=== PATIENT | female | born 1980 | race Hispanic/Latino ===

== ENCOUNTER 2025-02-24 17:47 | Emergency (ER) | payer OTHER ==
--- OUTSIDE RECORDS SUMMARY | 2025-02-24 17:55 | XMS REPORT | Continuity of Care Document ---
Author Name Unknown Address [address] [facility] [address] [place] [address] [facility] [place] Address [address] [facility] [place] [address] Care Team Providers Care Supervisor Research [employer] Name Role Phone Tobi Hopkins MD Primary Care Physician JOS REZA Attending Clinician Unavailable LAB90 Attending Clinician Unavailable LOI GOMEZ Attending Clinician Unava lien HASSAN_Abram Attending Clinician Unavailable Tobi Hopkins MD Attending Clinician + [phone] TOBI HOPKINS Attending Clinician Unajackson olivera Doctor Unassigned, [place] Attending Clinician U oral López MA, Sarah Scott Attending Clinician Unavaila Shivani Crump Attending Clinician [phone] Moo GRISSOM, Caryn Kenney Attending Clinician Unavailab RUTHIE Salcedo Attending Clinician Unavailable Ruthie Choudhury Attending Clinician [phone] RADHA DASH Attending Clinician Unavailable Radha Singleton Attending Clinician [phone] Lab, Ang - Db Attending Clinician Unavailable ALEXANDRU VANN Attending Clinician Unavail able Provider, [facility] Attending Clinician Un available EMIR VALVERDE Attending Clinician Unavailable Alexandru Vann DO Attending Clinician [phone] Lab, Adc Fam Pob I Attending Clinician Unavailab le 1, Adc Lab Attending Clinician Unavailable Saqib Mares MD Attending Clinician SAQIB MARES Attending Clinician Unavailable Kenneth Bai Attending Clinician SONYA_Abram Admitting Clinician Unavailable Payers Payer Name Policy Type Policy Number Effective Date Expirati on Date Source [employer] 2 [id number] 2024 00:00:00 BCBS 2 [id number] 2023 00:00:00 [facility] [id number] [facility] 2 [id number] 2023 00:00:00 [employer] [place] [id number] 2016 00:00:00 2016 00:00:00 Problems Condition Name Condition Details Condition Category Status Onset Date Resolution Date Last Treatment Date Treating Clinician Comments Source Migraine with aura and without status migrainosu s, not intractabl e Migraine with aura and without status migrainosu s, not intractabl e Disease Active 2023-11 00:00: 00 Lisa Seybold - Externa l BMI 33.0-33.9, adult BMI 33.0-33.9, adult Disease Active 2023-11 00:00: 00 Lisa Seybold - Externa l DM type 2 with diabetic mixed hyperlipid emia (multi HCC) DM type 2 with diabetic mixed hyperlipid emia (multi HCC) Disease Active 01-25 00:00: 00 Lisa Seybold - Externa l Anemia, unspecifie d type Anemia, unspecifie d type Disease Active 06-29 00:00: 00 [facility] Prediabete s Prediabete s Disease Active 06-29 00:00: 00 [facility] Other type of migraine without status migrainosu s Other type of migraine without status migrainosu s Disease Active 06-27 00:00: 00 [facility] Obesity (BMI 30-39.9) Obesity (BMI 30-39.9) Disease Active 06-27 00:00: 00 [facility] Allergies, Adverse Reactions, Alerts Allergy Name Allergy Type Status Severity Reaction(s) Onset Date Inactive Date Treating Clinician Comments Source NO KNOWN ALLERGIE S Drug Class Active [facility] Social History Social Habit Start Date Stop Date Quantity Comments Source Sexual orientation Celeste polk Louie - External ASSERTION Possible Lisa Palma - External History SDOH Alcohol Frequency [facility] History SDOH Alcohol Std Drinks [facility] History SDOH Alcohol Binge [facility] Gender [facility] Tobacco use and exposure 2025-02-24 00:00:00 2025-02-24 00:00:00 Smokeless tobacco non-user Lisa Palma - External Alcoholic beverage intake 2025-02-24 00:00:00 2025-02-24 00:00:00 Current drinker of alcohol (finding) Lisa Palma - External Alcohol intake 2023-10-24 00:00:00 2023-10-24 00:00:00 Current drinker of alcohol (finding) Lisa Palma - External History of Social function 2023-10-23 00:00:00 2023-10-23 00:00:00 Lisa Palma - External Alcohol Comment 2023-10-23 00:00:00 2023-10-23 00:00:00 socially Lisa Palma - External Sex 2023-05-30 11:30:10 2023-05-30 11:30:10 Female (finding) Lisa Palma - External Exposure to SARS-CoV-2 (event) 2022-04-22 00:00:00 2022-05-02 16:30:00 Not sure [facility] Sex assigned at 1980 00:00:00 1980 00:00:00 Lisa Palma - External Smoking Status Start Date Stop Date Source Never smoked tobacco Lisa Palma - External Medications Ordered Medication Name Filled Medication Name Start Date Stop Date Current Medication? Ordering Clinician Indication Dosage Frequency Signature (SIG) Comments Components Source Phentermine HCl 37.5 MG oral Tablet 02-24 00:00: 00 Yes [id number] 37.5mg Take 1 tablet (37.5 mg total) by mouth every morning (before breakfast) . Lisa laura Ondansetron (ZOFRAN) 4 MG oral TABLET DISPERSIBLE 4- 00:00: 00 Yes [id number] 4mg Q.[id number] 3D Take 1 tablet (4 mg total) by mouth every 8 hours as needed for nausea. Lisa laura Vitamin D, Ergocalcife rol, 1.25 MG (88469 UT) oral Capsule 3-24 00:00: 00 Yes [id number] 26670E Q1W TAKE ONE (1) CAPSULE(S) BY MOUTH ONCE A WEEK. Lisa laura Phentermine HCl 37.5 MG oral Tablet 01-16 00:00: 00 02-24 00:00 :00 No [id number] TAKE ONE-HALF (1/2) TABLET(S) BY MOUTH EVERY MORNING BEFORE BREAKFAST. Lisa laura Topiramate 50 MG oral Tablet 12-15 00:00: 00 Yes [id number] 50mg Q.5D TAKE ONE (1) TABLET(S) BY MOUTH TWICE A DAY. Lisa laura Tirzepatide (Mounjaro) 7.5 MG/0.5ML subcutaneou s Solution Auto-inject or 2023-11 00:00: 00 Yes [id number] 3 7.5mg Q1W Inject 7.5 mg into the skin once a week. Lisa laura Nitrofurant oin Monohyd Macro (Macrobid) 100 MG oral Capsule 2023-11 00:00: 00 02-24 00:00 :00 No [id number] 100mg Q.5D Take 1 capsule (100 mg total) by mouth 2 times daily. Lisa larua ACETAMINOPH EN-CAFF-BUT ALBITAL 50-325-40 MG oral Tablet 2023-11 00:00: 00 Yes [id number] 1{tbl} Q4H Take 1 tablet by mouth every 4 hours as needed for pain. Lisa laura linaCLOtide (Linzess) 145 MCG oral Capsule 2023-11 00:00: 00 Yes [id number] 145ug QD Take 1 capsule (145 mcg total) by mouth daily. Lisa laura Topiramate 50 MG oral Tablet 2023-11 00:00: 00 Yes [id number] 50mg Q.5D Take 1 tablet (50 mg total) by mouth 2 times daily. Lisa laura Phentermine HCl 37.5 MG oral Tablet 2023-11 00:00: 00 Yes [id number] 18.75mg Take 0.5 tablets (18.75 mg total) by mouth every morning (before breakfast) . Lisa laura Tirzepatide (Mounjaro) 12.5 MG/0.5ML subcutaneou s Solution Auto-inject or 2023-11 00:00: 00 Yes [id number] 3 12.5mg Q1W Inject 12.5 mg into the skin once a week. Lisa laura Topiramate 25 MG oral Tablet 2023-11 00:00: 00 10-09 00:00 :00 No [id number] 25mg Q.5D TAKE ONE (1) TABLET(S) BY MOUTH TWICE A DAY. Lisa laura Mounjaro 12.5 MG/0.5ML subcutaneou s Solution Pen-injecto r 2023-11 00:00: 00 10-09 00:00 :00 No [id number] 3 INJECT 12.5 MG INTO THE SKIN ONCE A WEEK. Lisa laura Mounjaro 12.5 MG/0.5ML subcutaneou s Solution Auto-inject or 2023-11 00:00: 00 10-09 00:00 :00 No INJECT 12.5 MG INTO THE SKIN ONCE A WEEK. Lisa laura Cyanocobala min (B-12 Compliance Injection) 1000 MCG/ML injection Kit 07-18 00:00: 00 Yes [id number] 1000ug Q1W Inject 1,000 mcg as directed once a week. Lisa laura Ubrogepant (Ubrelvy) 50 MG oral Tablet 07-18 00:00: 00 Yes [id number] 50mg Take 1 tablet (50 mg total) by mouth as needed for migraine. Lisa laura Nitrofurant oin Monohyd Macro (Macrobid) 100 MG oral Capsule 04-29 00:00: 00 10-09 00:00 :00 No [id number] 100mg Q.5D Take 1 capsule (100 mg total) by mouth 2 times daily. Lisa laura hydroCHLORO thiazide 12.5 MG oral Capsule 03-25 00:00: 00 Yes [id number] 12.5mg QD TAKE ONE (1) CAPSULE(S) BY MOUTH ONCE A DAY. Lisa laura hydroCHLORO thiazide 12.5 MG oral Capsule 03-25 00:00: 00 Yes [id number] 12.5mg QD TAKE ONE (1) CAPSULE(S) BY MOUTH ONCE A DAY. Lisa laura Cyanocobala min (VIT B12) 1000 MCG/ML injection Solution 02-25 00:00: 00 10-09 00:00 :00 No inject 1ml into THE SKIN ONCE a MONTH Lisa laura Sumatriptan Succinate 50 MG oral Tablet 02-10 00:00: 00 10-09 00:00 :00 No 50mg Take 1 tablet (50 mg total) by mouth once as needed. Lisa laura Vitamin D, Ergocalcife rol, 1.25 MG (57290 UT) oral Capsule 01-27 00:00: 00 Yes [id number] Q1W Take 1 capsule (50,000 units total) by mouth once a week. Lisa laura Tirzepatide (Mounjaro) 12.5 MG/0.5ML subcutaneou s Solution Pen-injecto r 2022-11 15:48: 52 10-24 00:00 :00 No 12.5mg 0.5 mL (12.5 mg total). Lisa laura Tirzepatide (Mounjaro) 10 MG/0.5ML subcutaneou s Solution Pen-injecto r 2022-11 15:38: 22 10-24 00:00 :00 No Mounjaro 10 mg/0.5 mL subcutaneo us pen injector INJECT 10 MG SUBCUTANEO USLY WEEKLY. Lisa laura Liraglutide -Weight Management (Saxenda) 18 MG/3ML subcutaneou s Solution Pen-injecto r 2022-11 15:38: 18 10-24 00:00 :00 No 3mg 0.5 mL (3 mg total) daily. Lisa laura hydroCHLORO thiazide 12.5 MG oral Capsule 2022-11 15:38: 15 10-24 00:00 :00 No hydrochlor othiazide 12.5 mg capsule Take 1 capsule every day by oral route for 30 days. Lisa laura Sumatriptan Succinate 100 MG oral Tablet 2022-11 15:38: 02 10-24 00:00 :00 No sumatripta n 100 mg tablet TAKE 1 TABLET BY MOUTH NEEDED FOR MIGRAINE Lisa laura Phentermine HCl 37.5 MG oral Tablet 2022-11 15:37: 50 10-24 00:00 :00 No daily. Lisa laura Ondansetron (ZOFRAN) 4 MG oral TABLET DISPERSIBLE 2022-11 15:37: 44 10-24 00:00 :00 No every 12 hours. Lisa laura OneTouch Delica Lancets 30G does not apply [facility] 2022-11 15:37: 27 10-24 00:00 :00 No OneTouch Delica Lancets 30 gauge Lisa laura Glucose Blood in vitro Strip 2022-11 15:37: 21 10-24 00:00 :00 No OneTouch Ultra Test strips Lisa laura Tirzepatide (Mounjaro) 2.5 MG/0.5ML subcutaneou s Solution Pen-injecto r 2022-11 00:00: 00 Yes [id number] 2.5mg Inject 0.5 mL (2.5 mg total) into the skin once a week. Lisa laura hydroCHLORO thiazide 12.5 MG oral Capsule 2022-11 00:00: 00 Yes [id number] 12.5mg Take 1 capsule (12.5 mg total) by mouth daily. Lisa laura Topiramate 25 MG oral Tablet 2022-11 15:47: 08 10-23 00:00 :00 No topiramate 25 mg tablet TAKE 1 TABLET BY MOUTH DAILY FOR 1 WEEK THEN TWICE DAILY FOR 1 WEEK THEN THREE TIMES DAILY Lisa laura Tirzepatide (Mounjaro) 7.5 MG/0.5ML subcutaneou s Solution Pen-injecto r 2022-11 15:46: 59 10-23 00:00 :00 No 7.5mg 0.5 mL (7.5 mg total). Lisa laura Tirzepatide (Mounjaro) 5 MG/0.5ML subcutaneou s Solution Pen-injecto r 2022-11 15:46: 53 10-23 00:00 :00 No 5mg 0.5 mL (5 mg total). Lisa laura Tirzepatide (Mounjaro) 2.5 MG/0.5ML subcutaneou s Solution Pen-injecto r 2022-11 15:46: 40 10-23 00:00 :00 No 2.5mg 0.5 mL (2.5 mg total). Lisa laura TRIMETHOPRI M-SULFAMETH OXAZOLE (BACTRIM DS) 800-160 MG oral Tablet 2022-11 0 00:00: 00 10-24 00:00 :00 No 1{tbl} Take 1 tablet by mouth every 8 hours FOR 7 DAYS. Lisa laura Cyclobenzap rine HCl 5 MG oral Tablet -12 00:00: 00 10-24 00:00 :00 No 5mg Take 1 tablet (5 mg total) by mouth every 12 hours. Lisa Louie laura HYDROcodone -Acetaminop hen 7.5-325 MG oral Tablet 08-07 00:00: 00 10-24 00:00 :00 No TAKE 1 TABLET BY MOUTH EVERY 6 HOURS NEEDED FOR ACUTE PAIN Lisa Louie laura Amoxicillin -Pot Clavulanate 875-125 MG oral Tablet 08-06 00:00: 00 10-24 00:00 :00 No 1{tbl} Take 1 tablet by mouth 2 times daily. Lisa laura B12 Lipo-B IM QW B12 Lipo-B IM QW 4- 00:00: 00 No B12 Lipo-B IM QW [facility] B12 Lipo-B IM QW B12 Lipo-B IM QW 0 4-08 00:00: 00 No B12 Lipo-B IM QW [facility] B12 Lipo-B IM QW B12 Lipo-B IM QW 0 4-08 00:00: 00 No B12 Lipo-B IM QW [facility] B12 Lipo-B IM QW B12 Lipo-B IM QW 0 4-08 00:00: 00 No B12 Lipo-B IM QW [facility] B12 Lipo-B IM QW B12 Lipo-B IM QW 0 4-08 00:00: 00 No B12 Lipo-B IM QW [facility] B12 Lipo-B IM QW B12 Lipo-B IM QW 0 4-08 00:00: 00 No B12 Lipo-B IM QW [facility] B12 Lipo-B IM QW B12 Lipo-B IM QW 0 4-08 00:00: 00 No B12 Lipo-B IM QW [facility] topiramate 25 mg tablet 2020-11 2- 00:00: 00 Yes [id number] TAKE 1 TABLET BY MOUTH DAILY FOR 1 WEEK THEN TWICE DAILY FOR 1 WEEK THEN THREE TIMES DAILY [facility] amoxicillin 500 mg tablet 2020-11 00:00: 00 11-11 05:59 :00 No [id number] 500mg Take 1 tablet by mouth 2 (two) times daily for 14 days. [facility] clarithromy varinder 250 mg tablet 2020-11 00:00: 00 11-11 05:59 :00 No [id number] 250mg Take 1 tablet by mouth every 12 (twelve) hours for 14 days. [facility] famotidine 20 mg tablet 2020-11 00:00: 00 11-11 05:59 :00 No [id number] 20mg Take 1 tablet by mouth 2 (two) times daily for 14 days. [facility] dicyclomine 10 mg capsule 2020-11 00:00: 00 11-24 05:59 :00 No [id number] 10mg Take 1 capsule by mouth 3 (three) times daily as needed for Abdominal pain for up to 30 days. [facility] famotidine 20 mg tablet 2020-11 00:00: 00 11-24 05:59 :00 No [id number] 20mg Take 1 tablet by mouth daily for 30 days. [facility] topiramate 25 mg tablet 2020-11 00:00: 00 Yes [id number] One a day for a week then 2 a day for a week then 3 a day [facility] OneTouch Delica Lancets 30 gauge OneTouch Delica Lancets 30 gauge No OneTouch Delica Lancets 30 gauge [facility] OneTouch Ultra Test [facility] OneTouch Ultra Test strips No OneTouch Ultra Test strips [facility] OneTouch Ultra2 Meter OneTouch Ultra2 Meter No OneTouch Ultra2 Meter [facility] Mounjaro 10 mg/0.5 mL subcutaneou s pen injector Inject 10 mg every week by subcutaneou s route for 84 days. Mounjaro 10 mg/0.5 mL subcutaneou s pen injector Inject 10 mg every week by subcutaneou s route for 84 days. No 10mg Q1W Mounjaro 10 mg/0.5 mL subcutaneo us pen injector Inject 10 mg every week by subcutaneo us route for 84 days. [facility] OneTouch Delica Lancets 30 gauge OneTouch Delica Lancets 30 gauge No OneTouch Delica Lancets 30 gauge [facility] OneTouch Ultra Test strips OneTouch Ultra Test strips No OneTouch Ultra Test strips [facility] OneTouch Ultra2 Meter OneTouch Ultra2 Meter No OneTouch Ultra2 Meter [facility] sumatriptan 100 mg tablet TAKE 1 TABLET BY MOUTH NEEDED FOR MIGRAINE sumatriptan 100 mg tablet TAKE 1 TABLET BY MOUTH NEEDED FOR MIGRAINE No sumatripta n 100 mg tablet TAKE 1 TABLET BY MOUTH NEEDED FOR MIGRAINE [facility] OneTouch Delica Lancets 30 gauge OneTouch Delica Lancets 30 gauge No OneTouch Delica Lancets 30 gauge [facility] OneTouch Ultra Test strips OneTouch Ultra Test strips No OneTouch Ultra Test strips [facility] OneTouch Ultra2 Meter OneTouch Ultra2 Meter No OneTouch Ultra2 Meter [facility] OneTouch Delica Lancets 30 gauge OneTouch Delica Lancets 30 gauge No OneTouch Delica Lancets 30 gauge [facility] OneTouch Ultra Test strips OneTouch Ultra Test strips No OneTouch Ultra Test strips [facility] OneTouch Ultra2 Meter OneTouch Ultra2 Meter No OneTouch Ultra2 Meter [facility] OneTouch Delica Lancets 30 gauge OneTouch Delica Lancets 30 gauge No OneTouch Delica Lancets 30 gauge [facility] OneTouch Ultra Test strips OneTouch Ultra Test strips No OneTouch Ultra Test strips [facility] OneTouch Ultra2 Meter OneTouch Ultra2 Meter No OneTouch Ultra2 Meter Estephania Ordoñez [facility] Immunizations Ordered Immunization Name Filled Immunization Name Date Status Comments Source SARS-COV-2 COVID-19 PFIZER VACCINE 2021-07-08 00:00:00 Completed [facility] SARS-COV-2 COVID-19 PFIZER VACCINE 2021-07-08 00:00:00 Completed [facility] SARS-COV-2 COVID-19 PFIZER VACCINE 2021-07-08 00:00:00 Completed [facility] SARS-COV-2 COVID-19 PFIZER VACCINE 2021-07-08 00:00:00 Completed [facility] SARS-COV-2 COVID-19 PFIZER VACCINE 2021-07-08 00:00:00 Completed [facility] SARS-COV-2 COVID-19 PFIZER VACCINE 2021-07-08 00:00:00 Completed [facility] SARS-COV-2 COVID-19 PFIZER VACCINE 2021-07-08 00:00:00 Completed [facility] SARS-COV-2 COVID-19 PFIZER VACCINE 2021-07-08 00:00:00 Completed [facility] SARS-COV-2 COVID-19 PFIZER VACCINE 2021-07-08 00:00:00 Completed [facility] SARS-COV-2 COVID-19 PFIZER VACCINE 2021-02-12 00:00:00 Completed [facility] SARS-COV-2 COVID-19 PFIZER VACCINE 2021-02-12 00:00:00 Completed [facility] SARS-COV-2 COVID-19 PFIZER VACCINE 2021-02-12 00:00:00 Completed [facility] SARS-COV-2 COVID-19 PFIZER VACCINE 2021-02-12 00:00:00 Completed [facility] SARS-COV-2 COVID-19 PFIZER VACCINE 2021-02-12 00:00:00 Completed [facility] SARS-COV-2 COVID-19 PFIZER VACCINE 2021-02-12 00:00:00 Completed [facility] SARS-COV-2 COVID-19 PFIZER VACCINE 2021-02-12 00:00:00 Completed [facility] SARS-COV-2 COVID-19 PFIZER VACCINE 2021-02-12 00:00:00 Completed [facility] SARS-COV-2 COVID-19 PFIZER VACCINE 2021-02-12 00:00:00 Completed [facility] Covid-19 Vaccine (Pfizer), Mrna-lnp, Joe Protein, Pf, 30mcg/0.3ml,IM Unknown Completed Lisa Hardingol d - External Influenza, Injectable, Mdck, Quadrivalent With Preservative Unknown Completed Lisa Palma - External Covid-19 Vaccine (Pfizer), Mrna-lnp, Joe Protein, Pf, 30mcg/0.3ml,IM Unknown Completed Lisa Hardingol d - External Influenza, Injectable, Mdck, Quadrivalent With Preservative Unknown Completed Lisa Palma - External Covid-19 Vaccine ([facility]), Mrna-lnp, Joe Protein, Pf, 30mcg/0.3ml,IM Unknown Completed Lisa montes - External Influenza, Injectable, Mdck, Quadrivalent With Preservative Unknown Completed Lisa Palma - External SARS-COV-2 COVID-19 PFIZER VACCINE Unknown Completed [facility] SARS-COV-2 COVID-19 PFIZER VACCINE Unknown Completed [facility] Vital Signs Vital Name Observation Time Observation Value Comments S ource Systolic blood pressure 2025-02-24 21:42:00 114 mm[Hg] Lisa Rodriguez ld - External Diastolic blood pressure 2025-02-24 21:42:00 64 mm[Hg] Lisa Rodriguez ld - External Heart rate 2025-02-24 21:42:00 90 /min Valencia Palma - External Body temperature 2025-02-24 21:42:00 36 Sharri Lisa Palma - External Respiratory rate 2025-02-24 21:42:00 14 /min Lisa Palma - External Body height 2025-02-24 21:42:00 160 cm Estephania Palma - External Body weight 2025-02-24 21:42:00 78.472 kg Estephania Palma - External BMI 2025-02-24 21:42:00 30.65 kg/m2 Estephania Palma - External Oxygen saturation in Arterial blood by Pulse oximetry 2025-02-24 21:42:00 100 /min Lisa Seybo ld - External Systolic blood pressure 2024-10-09 21:57:00 126 mm[Hg] Lisa Seybo ld - External Diastolic blood pressure 2024-10-09 21:57:00 70 mm[Hg] Lisa Seybo ld - External Heart rate 2024-10-09 21:57:00 78 /min Kelse y Seybold - External Body temperature 2024-10-09 21:57:00 36.67 Sharri Lisa Seybold - External Respiratory rate 2024-10-09 21:57:00 15 /min Lisa Seybold - External Body height 2024-10-09 21:57:00 160 cm Estephania ey Seybold - External Body weight 2024-10-09 21:57:00 85.73 kg Estephania ey Seybold - External BMI 2024-10-09 21:57:00 33.48 kg/m2 Estephania ey Seybold - External Systolic blood pressure 2023-10-24 21:34:00 130 mm[Hg] Lisa Seybo ld - External Diastolic blood pressure 2023-10-24 21:34:00 64 mm[Hg] Lisa Seybo ld - External Heart rate 2023-10-24 21:34:00 77 /min Kelse y Seybold - External Body temperature 2023-10-24 21:34:00 36.44 Sharri Lisa Seybold - External Respiratory rate 2023-10-24 21:34:00 14 /min Lisa Seybold - External Body height 2023-10-24 21:34:00 160 cm Estephania ey Seybold - External Body weight 2023-10-24 21:34:00 89.359 kg Estephania ey Seybold - External BMI 2023-10-24 21:34:00 34.90 kg/m2 Estephania ey Seybold - External Systolic blood pressure 2023-07-10 21:01:00 120 mm[Hg] [facility] Diastolic blood pressure 2023-07-10 21:01:00 75 mm[Hg] [facility] Heart rate 2023-07-10 21:01:00 81 /min [facility] Body temperature 2023-07-10 21:01:00 36.67 Sharri [facility] Body height 2023-07-10 21:01:00 160 cm [facility] Body weight 2023-07-10 21:01:00 82.101 kg [facility] BMI 2023-07-10 21:01:00 32.06 kg/m2 [facility] BP Diastolic 2023-04-03 00:00:00 77 mm[Hg] [facility] Height 2023-04-03 00:00:00 63 [in_i] [facility] BMI (Body Mass Index) 2023-04-03 00:00:00 33.7 kg/m2 [facility] BP Systolic 2023-04-03 00:00:00 134 mm[Hg] [facility] Body Weight 2023-04-03 00:00:00 3048 [oz_av] [facility] BP Diastolic 2023-01-24 00:00:00 55 mm[Hg] [facility] Height 2023-01-24 00:00:00 63 [in_i] [facility] BMI (Body Mass Index) 2023-01-24 00:00:00 34.5 kg/m2 [facility] BP Systolic 2023-01-24 00:00:00 134 mm[Hg] [facility] Body Weight 2023-01-24 00:00:00 3112 [oz_av] [facility] BP Diastolic 2022-10-26 00:00:00 73 mm[Hg] [facility] Height 2022-10-26 00:00:00 63 [in_i] [facility] BMI (Body Mass Index) 2022-10-26 00:00:00 36.3 kg/m2 [facility] BP Systolic 2022-10-26 00:00:00 128 mm[Hg] [facility] Body Weight 2022-10-26 00:00:00 3280 [oz_av] [facility] BP Diastolic 2022-07-28 00:00:00 72 mm[Hg] [facility] Height 2022-07-28 00:00:00 63 [in_i] [facility] BMI (Body Mass Index) 2022-07-28 00:00:00 40.9 kg/m2 [facility] BP Systolic 2022-07-28 00:00:00 138 mm[Hg] [facility] Body Weight 2022-07-28 00:00:00 3696 [oz_av] [facility] BP Diastolic 2022-07-19 00:00:00 72 mm[Hg] [facility] Height 2022-07-19 00:00:00 63 [in_i] [facility] BMI (Body Mass Index) 2022-07-19 00:00:00 40.4 kg/m2 [facility] BP Systolic 2022-07-19 00:00:00 132 mm[Hg] [facility] Body Weight 2022-07-19 00:00:00 3648 [oz_av] [facility] Systolic blood pressure 2022-05-02 21:35:00 125 mm[Hg] [facility] Diastolic blood pressure 2022-05-02 21:35:00 78 mm[Hg] [facility] Heart rate 2022-05-02 21:35:00 76 /min [facility] Body temperature 2022-05-02 21:35:00 37.5 Sharri [facility] Respiratory rate 2022-05-02 21:35:00 18 /min [facility] Body height 2022-05-02 21:35:00 157.5 cm [facility] Body weight 2022-05-02 21:35:00 101.288 kg [facility] BMI 2022-05-02 21:35:00 40.84 kg/m2 [facility] Oxygen saturation in Arterial blood by Pulse oximetry 2022-05-02 21:35:00 98 /min [facility] BP Diastolic 2022-03-09 00:00:00 75 mm[Hg] [facility] Height 2022-03-09 00:00:00 63 [in_i] [facility] BMI (Body Mass Index) 2022-03-09 00:00:00 40.4 kg/m2 [facility] BP Systolic 2022-03-09 00:00:00 143 mm[Hg] [facility] Body Weight 2022-03-09 00:00:00 3648 [oz_av] [facility] BP Diastolic 2022-03-03 00:00:00 71 mm[Hg] [facility] Height 2022-03-03 00:00:00 63 [in_i] [facility] BMI (Body Mass Index) 2022-03-03 00:00:00 40.4 kg/m2 [facility] BP Systolic 2022-03-03 00:00:00 140 mm[Hg] [facility] Body Weight 2022-03-03 00:00:00 3649.6 [oz_av] [facility] Procedures Procedure Date / Time Performed Performing Clinicia n Source CONSENT/REFUSAL FOR DIAGNOSIS AND TREATMENT 2023-07-10 20:53:15 Doctor Unassigned, [place] [facility] MAMMO, screening, digital, bilateral 2022-07-19 00:00:00 [facility] Plan of Care Planned Activity Planned Date Details Comments Source Diagnostic Test Pending 2023-04-03 00:00:00 hemoglobin A1C, fingerstick [code = hemoglobin A1C, fingerstick] [facility] Encounters Start Date/Time End Date/Time Encounter Type Admission Type Attending Clinicians Care Facility Care Department Encounter ID Source 2025-03-30 14:00:00 2025-03-30 14:00:00 Outpatient JOS REZA [id number] [facility] 2025-02-24 17:10:00 2025-02-24 17:10:00 Outpatient LAB90 LISA ESCALONA [id number] [facility] 2025-02-24 16:30:00 2025-02-24 16:30:00 Outpatient JOS REZA [id number] Lisa [facility] 2025-02-24 00:00:00 2025-02-24 00:00:00 Outpatient JOS REZA [id number] [facility] 2025-02-14 00:00:00 2025-02-14 00:00:00 Outpatient HUNDL, JSO ESCALONA [id number] [facility] 2025-01-15 00:00:00 2025-01-15 00:00:00 Outpatient HUNDL, JOS ESCALONA [id number] Lisa [facility] 2024-12-14 00:00:00 2024-12-14 00:00:00 Outpatient HUNDL, JOS ESCALONA [id number] [facility] 2024-11-24 09:30:00 2024-11-24 09:30:00 Outpatient HUNDL, JOS ESCALONA [id number] [facility] 2024-11-24 00:00:00 2024-11-24 00:00:00 Outpatient HUNDL, JOS ESCALONA [id number] [facility] 2024-11-06 15:30:00 2024-11-06 15:30:00 Outpatient HUNDL, JOS ESCALONA [id number] [facility] 2024-10-09 16:00:00 2024-10-09 16:00:00 Outpatient HUNDL, JOS ESCALONA [id number] [facility] 2024-09-27 00:00:00 2024-09-27 00:00:00 Outpatient HUNDL, JOS ESCALONA [id number] [facility] 2024-09-16 00:00:00 2024-09-16 00:00:00 Outpatient HUNDL, JOS ESCALONA [id number] Lisa [facility] 2024-08-14 00:00:00 2024-08-14 00:00:00 Outpatient HUNDL, JOS ESCALONA [id number] Lisa [facility] 2024-08-01 00:00:00 2024-08-01 00:00:00 Outpatient HUNDL, JSO ESCALONA [id number] Lisa [facility] 2024-07-18 00:00:00 2024-07-18 00:00:00 Outpatient HUNDL, JOS ESCALONA [id number] Lisa [facility] 2024 00:00:2024 00:00:00 Outpatient HUNDL, JOS LISA ESCALONA [id number] [facility] 2024-04-10 00:00:00 2024-04-10 00:00:00 Outpatient HUNDL, JOS ESCALONA [id number] [facility] 2024-04-03 13:30:00 2024-04-03 13:30:00 Outpatient HUNDL, JOS ESCALONA [id number] [facility] 2024-03-21 00:00:00 2024-03-21 00:00:00 Outpatient HUNDL, JOS ESCALONA [id number] [facility] 2024-02-26 00:00:00 2024-02-26 00:00:00 Outpatient HUNDL, JOS ESCALONA [id number] [facility] 2024-01-31 00:00:00 2024-01-31 00:00:00 Outpatient HUNDL[facility] [id number] [facility] 2024-01-26 00:00:00 2024-01-26 00:00:00 Outpatient HUNDL, JOS ESCALONA [id number] [facility] 2024-01-25 08:30:00 2024-01-25 08:30:00 Outpatient LAB90 LISA ESCALONA [id number] [facility] 2024-01-01 00:00:00 2024-01-01 00:00:00 Outpatient HUNDL, JOS ESCALONA [id number] [facility] 2023-11-22 00:00:00 2023-11-22 00:00:00 Outpatient HUNDL, JOS ESCALONA [id number] [facility] 2023-11-20 00:00:00 2023-11-20 00:00:00 Outpatient HUNDL, JOS ESCALONA [id number] [facility] 2023-11-15 00:00:00 2023-11-15 00:00:00 Outpatient HUNDL, JOS ESCALONA [id number] Lisa [facility] 2023-10-29 00:00:00 2023-10-29 00:00:00 Outpatient HUNDL, JOS ESCALONA [id number] [facility] 2023-10-25 00:00:00 2023-10-25 00:00:00 Outpatient JOS REZA LISA [id number] [facility] 2023-10-24 15:30:00 2023-10-24 15:30:00 Outpatient JOS REZA LISA [id number] [facility] 2023-10-24 00:00:00 2023-10-24 00:00:00 Outpatient JOS REZA LISA [id number] [facility] 2023-10-17 14:15:00 2023-10-17 14:15:00 Outpatient JASON OLI LISA ESCALONA [id number] [facility] 2023-09-30 00:00:00 2023-09-30 00:00:00 Outpatient SISSON_C [facility] [id number] 2023-08-27 00:00:00 2023-08-27 00:00:00 Outpatient SISSON_C [facility] [id number] 2023-07-10 16:00:00 2023-07-10 16:30:00 Office Visit Tobi Hopkins [facility] 1.2.840.114 350.1.13.10 4.2.7.2.686 [id number] [facility] 2023-07-10 16:00:00 2023-07-10 16:00:00 Outpatient TOBI PARKER [facility] [id number] [facility] 2023-07-10 00:00:00 2023-07-10 00:00:00 Orders Only Doctor Unassigned, [place] [facility] 1.840.114 350.1.13.10 4.2.7.2.686 [id number] [facility] 2023-07-03 00:00:00 2023-07-03 00:00:00 Outpatient SISSON_C [facility] [id number] [facility] 2023-06-18 11:00:00 2023-06-18 11:00:00 Outpatient LOI GOMEZ [id number] Lisa [facility] 2023-06-14 00:00:00 2023-06-14 00:00:00 Outpatient SISSON_C [facility] [id number] [facility] 2023-06-14 00:00:00 2023-06-14 00:00:00 Outpatient SISSON_C [facility] [id number] [facility] 2023-05-10 00:00:00 2023-05-10 00:00:00 Outpatient SISSON_C [facility] [id number] [facility] 2023-05-10 00:00:00 2023-05-10 00:00:00 Outpatient SISSON_C [facility] [id number] [facility] 2023-04-04 00:00:00 2023-04-04 00:00:00 Outpatient SISSON_C [facility] [id number] [facility] 2023-04-03 00:00:00 2023-04-03 00:00:00 JUANI Polanco, MACHINERY ENGINEER, HOME CARE MANAGER RN-C: [address], [address] [place] [address] , [facility], Shivani Hassan, MSN, HOME CARE MANAGER RN-C [id number] [facility] 2023-02-13 00:00:00 2023-02-13 00:00:00 Outpatient SISSON_C [facility] [id number] [facility] 2023-02-13 00:00:00 2023-02-13 00:00:00 Outpatient SISSON_C [facility] [id number] [facility] 2023-01-26 00:00:00 2023-01-26 00:00:00 Telephone López, Sarah Sonia SALLY PRESTON 1.2.840.114 350.1.13.10 4.2.7.2.686 [id number] [facility] 2023-01-24 00:00:00 2023-01-24 00:00:00 Shivani Hassan, MSN, MACHINERY ENGINEER, HOME CARE MANAGER RN-C: [address], [address], [place] [address] , [facility], Shivani Hassan, MSN, HOME CARE MANAGER RN-C [id number] [facility] 2023-01-09 00:00:00 2023-01-09 00:00:00 [facility] [id number] [facility] 2023-01-09 00:00:00 2023-01-09 00:00:00 [facility] [id number] [facility] 2023-01-04 00:00:00 2023-01-04 00:00:00 Case Management López, Sarah PRESTON ..840.114 350.1.13.10 4.2.7.2.686 [id number] [facility] 2023-01-04 00:00:00 2023-01-04 00:00:00 Telephone López, Sarahalison PRESTON 1.2.840.114 350.1.13.10 4.2.7.2.686 [id number] [facility] 2022-12-06 00:00:00 2022-12-06 00:00:00 Outpatient [facility] [id number] [facility] 2022-10-26 00:00:00 2022-10-26 00:00:00 Outpatient SISSON_C [facility] [id number] [facility] 2022-10-26 00:00:00 2022-10-26 00:00:00 Shivani Hassan, MSN, MACHINERY ENGINEER, HOME CARE MANAGER RN-C: [address], [place] [address] , [facility], Shivani Hassan, MSN, HOME CARE MANAGER RN-C [id number] [facility] 2022-07-28 00:00:00 2022-07-28 00:00:00 Outpatient SISMENDEL_C [facility] [id number] [facility] 2022-07-28 00:00:00 2022-07-28 00:00:00 Outpatient Shivani Hassan [facility] [id number] 2022-07-28 00:00:00 2022-07-28 00:00:00 Shivani Hassan, MSN, MACHINERY ENGINEER, HOME CARE MANAGER RN-C: [address], [address], [place] [address] , [facility], Shivani Hassan, MSN, HOME CARE MANAGER RN-C [id number] [facility] 2022-07-25 00:00:00 2022-07-25 00:00:00 Outpatient SISSON_C [facility] [id number] [facility] 2022-07-19 00:00:00 2022-07-19 00:00:00 Outpatient SISSON_C [facility] [id number] [facility] 2022-07-19 00:00:00 2022-07-19 00:00:00 Outpatient Sonya Shivani [facility] [id number] 2022-07-19 00:00:00 2022-07-19 00:00:00 Shivani Hassan, MSN, MACHINERY ENGINEER, HOME CARE MANAGER RN-C: [address], [address], [place] [address] , [facility], Shivani Hassan, MSN, HOME CARE MANAGER RN-C [id number] [facility] 2022-05-03 00:00:00 2022-05-03 00:00:00 Letter (Out) Caryn Cortés [facility] 1.2.840.114 350.1.13.10 4.2.7.2.686 [id number] [facility] 2022-05-02 16:20:00 2022-05-02 16:50:42 Outpatient R [facility] [id number] [facility] 2022-05-02 16:20:00 2022-05-02 16:50:42 Urgent Care [facility] 1.2.840.114 350.1.13.10 4.2.7.2.686 [id number] [facility] 2022-03-09 00:00:00 2022-03-09 00:00:00 Outpatient SISSON_C [facility] [id number] [facility] 2022-03-09 00:00:00 2022-03-09 00:00:00 Shivani Hassan, MSN, MACHINERY ENGINEER, HOME CARE MANAGER RN-C: [address], [address], [place] [address] , [facility], Shivani Hassan, MSN, HOME CARE MANAGER RN-C [id number] [facility] 2022-03-03 11:14:00 2022-03-03 11:14:00 Outpatient SISSON_C [facility] [id number] [facility] 2022-03-03 00:00:00 2022-03-03 00:00:00 Shivani Hassan, MSN, MACHINERY ENGINEER, HOME CARE MANAGER RN-C: [address], [address], [place] [address] , [facility], Shivnai Hassan, MSN, HOME CARE MANAGER RN-C [id number] [facility] 2022-03-03 00:00:00 2022-03-03 00:00:00 Outpatient SonyaShivani [facility] [id number] 2022-03-02 12:08:00 2022-03-02 12:08:00 Outpatient DMITRYSON_C [facility] [id number] [facility] 2021-10-28 00:00:00 2021-10-28 00:00:00 Outpatient RADHA MEEKS [facility] [id number] [facility] 2021-10-28 00:00:00 2021-10-28 00:00:00 Outpatient RADHA MEEKS [facility] [id number] [facility] 2021-10-28 00:00:00 2021-10-28 00:00:00 Tobi Falcon [facility] 1.2.840.114 350.1.13.10 4.2.7.2.686 [id number] [facility] 2021-10-28 00:00:00 2021-10-28 00:00:00 Patient Secure Radha Torres [facility] 1.2.840.114 350.1.13.10 4.2.7.2.686 [id number] [facility] 2021-10-28 00:00:00 2021-10-28 00:00:00 Patient Secure Msg Doctor Unassigned, [place] [facility] 1.2.840.114 350.1.13.10 4.2.7.2.686 [id number] [facility] 2021-10-27 00:00:00 2021-10-27 00:00:00 Telephone Radha Dash [facility] 1.2.840.114 350.1.13.10 4.2.7.2.686 [id number] [facility] 2021-10-25 09:15:00 2021-10-25 09:15:00 Outpatient TOBI PARKER [facility] [id number] [facility] 2021-10-25 09:15:00 2021-10-25 09:15:00 Outpatient TOBI PARKER [facility] [id number] [facility] 2021-10-24 16:04:39 2021-10-24 17:14:58 Office Visit Radha Dash [facility] 1.2.840.114 350.1.13.10 4.2.7.2.686 [id number] [facility] 2021-10-24 16:00:00 2021-10-24 17:14:58 Outpatient R LIZZETTE RADHA [facility] [id number] [facility] 2021-10-24 16:00:00 2021-10-24 17:14:58 Outpatient R RADHA DASH [facility] [id number] [facility] 2021-10-24 16:00:00 2021-10-24 17:14:58 Outpatient R RADHA DASH [facility] [id number] [facility] 2021-10-24 16:44:10 2021-10-24 16:59:10 Women'S Studies Lecturer Visit Lab, [facility]win [facility] 1.2.840.114 350.1.13.10 4.2.7.2.686 [id number] [facility] 2021-10-24 00:00:00 2021-10-24 00:00:00 Letter (Out) [facility] 1.2.840.114 350.1.13.10 4.2.7.2.686 [id number] [facility] 2021-10-04 08:50:43 2021-10-04 09:05:43 Women'S Studies Lecturer Visit Lab, Erwin AmadorTobi buck [facility] 1.2.840.114 350.1.13.10 4.2.7.2.686 [id number] [facility] 2021-10-04 09:00:00 2021-10-04 09:00:00 Outpatient TOBI PARKER [facility] [id number] [facility] 2021-10-04 08:25:45 2021-10-04 08:55:45 Office Visit Iasmarjan Tobi [facility] 1.2.840.114 350.1.13.10 4.2.7.2.686 [id number] [facility] 2021-10-04 08:30:00 2021-10-04 08:30:00 Outpatient TOBI PARKER [facility] [id number] [facility] 2021-04-01 08:00:00 2021-04-01 08:00:00 Outpatient R SOOALEXANDRU [facility] [id number] [facility] 2021-04-01 08:00:00 2021-04-01 08:00:00 Outpatient R ALEXANDRU VANN [facility] [id number] [facility] 2021-03-05 10:10:00 2021-03-05 10:10:[address] [facility] [id number] [facility] 2021-03-05 10:10:00 2021-03-05 10:10:[address] [facility] [id number] [facility] 2021-02-21 10:21:41 2021-02-21 10:41:41 Urgent Care Provider, [facility] ..114 350.1.13.10 4.2.7.2.686 [id number] [facility] 2021-02-21 10:20:00 2021-02-21 10:20:00 Outpatient R LIZZETTE RADHA [facility] [id number] [facility] 2021-02-12 09:55:00 2021-02-12 09:55:00 Outpatient EMIR CORRALES [facility] [id number] [facility] 2021-02-10 00:00:00 2021-02-10 00:00:00 Patient Outreach SooAlexandru Jean [facility] ..114 350.1.13.10 4.2.7.2.686 [id number] [facility] 2020-10-17 10:30:12 2020-10-17 10:50:12 Laboratory Only Lab, Adc Fam Pob Ruthie Thompson [facility] Office [address] ..114 350.1.13.10 4.2.7.2.686 [id number] [facility] 2020-10-17 10:20:00 2020-10-17 10:20:00 Outpatient R RUTHIE MCGILL [facility] [id number] [facility] 2020-06-03 08:39:25 2020-06-03 08:55:39 Women'S Studies Lecturer Visit 1, Adc Lab Saqib Mares [facility] 1.2840.114 350.1.13.10 4.2.7.2.686 [id number] [facility] 2020-06-03 08:15:00 2020-06-03 08:15:00 Outpatient R SAQIB MARES [facility] [id number] [facility] 2020-06-03 00:00:00 2020-06-03 00:00:00 Orders Only Doctor Unassigned, [place] [facility] 1.840.114 350.1.13.10 4.2.7.2.686 [id number] [facility] 2020-05-29 10:20:00 2020-05-29 10:20:00 Outpatient R RADHA DASH [facility] [id number] [facility] 2019-12-25 12:12:31 2019-12-25 13:26:00 Emergency Kenneth Whaley [facility] 1.2840.114 350.1.13.10 4.2.7.2.686 [id number] [facility] 2019-12-25 00:00:00 2019-12-25 00:00:00 Orders Only Doctor Unassigned, [place] [facility] 1.284.114 350.1.13.10 4.2.7.2.686 [id number] [facility] Notes Date/Time Note Provider Source 2025-02-24 16:45:05 Chief Complaint Patient presents with Follow-up Follow up on weight management Shannon Brown MA [facility] 2024-10-09 16:00:38 Chief Complaint Patient presents with Diabetes Diabetic follow up Headache Has been having increased migraines with nausea and vomiting. No visual disturbance. Shannon Brown MA II [facility]
[2025-02-24 18:47] LABS: Absolute Eosinophils 0.1 K/uL (0-0.5); Absolute Lymphocytes (CBC) 2.9 K/uL (0.7-4.9); Absolute Monocytes 0.6 K/uL (0.1-1.3); Absolute Neutrophil 4.4 K/uL (1.8-8.0); Basophils % 0.5 % (0-1.3); Eosinophils % 1.2 % (0-4.4); Hematocrit 37.3 % (36.0-45.0); Lymphocytes % 36.1 % (15.3-44.8); MCH 30.2 pg (27.0-35.0); MCHC 34.9 g/dL (32.0-36.0); MCV 86.7 fL (80-100); Monocytes % 7.8 % (3.3-12.3); Neutrophils % 54.4 % (41.7-73.7); Nucleated Red Blood Cells % 0.1 % (0-0); Platelets 287 thou/uL (152-406); RBC Red Blood Cell Count 4.31 M/uL (3.86-4.86); Red Cell Distribution Width 14.1 % (12.1-15.2)
--- NOTE | 2025-02-24 19:08 | RAD REPORT ---
EXAMINATION: Abdomen Pelvis W Contrast CLINICAL INDICATION: Female, 44 years old.ABD PAIN TECHNIQUE: CT abdomen and pelvis was performed, after the administration of IV contrast, as per [facility] protocol. Axial, sagittal and coronal reconstructions were obtained. One or more of the following dose reduction techniques were used: Automated exposure control, adjustment of the mA and/o r kV according to patient size, and/or iterative reconstruction. Unless otherwise specified, incidental findings do not require dedicated imaging follow-up. [id number]. COMPARISON: No prior exam. FINDINGS: LOWER CHEST: No acute process identified.No significant pericardial effusion. Bilateral breast prosth eses UPPER GI: No significant abnormality. LIVER: No significant focal abnormality. GALLBLADDER/BILE DUCTS: Cholelithiasis. Question trace pericholecystic edema.? PANCREAS: No mass, ductal dilation, or siva-pancreatic fluid. SPLEEN: Unremarkable. ADRENALS: No adrenal masses. KIDNEYS AND URETERS: No hydronephrosis.No suspicious renal mass.No renal calculi. ABDOMINAL AORTA AND OTHER VESSELS: Normal caliber aorta and IVC. PERITONEUM: No abnormal free fluid. No free air. LYMPH NODES: No pathologic lymphadenopathy. ABDOMINAL WALL: Small fat containing umbilical hernia. SMALL BOWEL/COLON: Small bowel has normal course and caliber. No colonic wall thickening or pericolon ic inflammatory changes.Normal appendix. URINARY BLADDER: Underdistended but grossly unremarkable. REPRODUCTIVE ORGANS: Nabothian cysts noted. MUSCULOSKELETAL: Moderate disc height loss at L5-S1. S1 is likely a transitional vertebral body. ADDITIONAL FINDINGS: None. IMPRESSION: Cholelithiasis. Question trace pericholecystic edema. Correlate clinically for acute cholecystitis. C ould consider ultrasound if clinically indicated.
[2025-02-24 19:09] LABS: ALT/SGPT 21 U/L (13-56); Albumin 3.7 g/dL (3.4-5.0); Albumin/Globulin Ratio 0.8 (1.1-1.8); Alkaline Phosphatase 66 U/L (45-117); Anion Gap 5.3 mEq/L (5.0-15.0); BUN Blood Urea Nitrogen 13 mg/dL (7-18); Bicarbonate 28 mEq/L (21-32); Bilirubin Total 0.3 mg/dL (0.2-1.0); Globulin 4.5 g/dL (2.3-3.5); Glomerular Filtration Rate 98 ml/min (=/>90); Glucose Level 111 mg/dL (74-106); Lipase 34 U/L (13-75); Potassium 3.3 mEq/L (3.5-5.1); Protein, Total 8.2 g/dL (6.4-8.2); Sodium Level 139 mEq/L (136-145)
[2025-02-24 19:10] LABS: AST/SGOT < 10 U/L (15-37)
[2025-02-24] MEDS ORDERED: KETOROLAC 30 MG/ML INJ ONE (19:35)
[2025-02-24] MEDS ORDERED: ONDANSETRON 4 MG/2 ML VIAL ONE (19:35)
[2025-02-24] MEDS ORDERED: NA CHLORIDE 0.9% 1,000 ML ONE (19:35)
--- NOTE | 2025-02-24 20:27 | RAD REPORT ---
Abdomen Exam Limited: 02/24/2025 8:05 PM CLINICAL HISTORY: pericholecystic fluid, gall stones STUDY: Limited right upper quadrant ultrasound of abdomen. COMPARISON: Same-day CT FINDINGS: Liver: Limited evaluation but grossly unremarkable. Bile ducts: No intrahepatic or extrahepatic biliary ductal dilatation. Common bile duct measures 2 mm. Gallbladder: Shadowing gallstones present within the gallbladder fundus. No gallbladder wall thickeni ng. No pericholecystic fluid. No sonographic Hernandez sign. IMPRESSION: Cholelithiasis without sonographic evidence of acute cholecystitis.
--- NOTE | 2025-02-24 20:30 | RAD REPORT ---
Transvaginal Study Probe CLINICAL INDICATION: Female 44 years old ABD PAIN TECHNIQUE: Real-time ultrasonography of the pelvis was performed transvaginally. Color and spectral D oppler evaluation of the ovaries was performed. [id number]. COMPARISON: Same day CT FINDINGS: UTERUS AND CERVIX: The uterus measures 10 x 5.3 x 6 cm (cervix to fundus x AP x transverse). The uter us is normal. Nabothian cysts noted. . The endometrium is normal,7 mm thickness. RIGHT OVARY: Benign cyst in the right ovary measuring 2.1 cm which does not require follow-up The rig ht ovary measures 3.2 x 2.1 x 3.1 cm with volume of 10.7 mL. Normal color and spectral Doppler evaluation of the right ovary.. LEFT OVARY: Normal The left ovary measures 2.5 x 1.1 x 1.7 cm with volume of 2.4 mL. Normal Color a nd spectral Doppler evaluation of the left ovary.. FREE FLUID: No free fluid. IMPRESSION: 1. No acute findings or significant abnormalities identified. 2. Bilateral ovarian blood flow.
--- NOTE | 2025-02-24 20:40 | ER ---
Nurse's Notes [facility] Name: Cathryn Rivera Age: 44 yrs Sex: Female : 1980 Arrival Date: 02/24/2025 Time: 17:47 Bed DX3 Private MD: Diagnosis: Right lower quadrant pain;Other cholelithiasis without obstruction Presentation: 02/24 19:00 Chief complaint: Patient states: right lower quadrant pain that started around 0230 am. vc1 19:00 Coronavirus screen: Client denies travel out of the [place] in the last 14 days. At this vc1 time, the client does not indicate any symptoms associated with coronavirus-19. Ebola Screen: Patient negative for fever greater than or equal to 101.5 degrees Fahrenheit, and additional compatible Ebola Virus Disease symptoms Patient denies exposure to infectious person. Patient denies travel to an Ebola-affected area in the 21 days before illness onset. No symptoms or risks identified at this time. Initial Sepsis Screen: Does the patient meet any 2 criteria? No. Patient's initial sepsis screen is negative. Does the patient have a suspected source of infection? No. Patient's initial sepsis screen is negative. Risk Assessment: Do you want to hurt yourself or someone else? Patient reports no desire to harm self or others. Onset of symptoms was February 24, 2025 at 02:30. 19:00 Method Of Arrival: Ambulatory vc1 19:00 Acuity: MAXINE 3 vc1 Triage Assessment: 19:24 General: Appears in no apparent distress. uncomfortable, Behavior is calm, cooperative, vc1 appropriate for age. Pain: Complains of pain in right lower quadrant Pain does not radiate. Pain currently is 5 out of 10 on a pain scale. at worst was 10 out of 10 on a pain scale. Quality of pain is described as crampy, Pain began suddenly, Is continuous, Noted to be guarding, Also complains of no other associated symptoms. EENT: No deficits noted. No signs and/or symptoms were reported regarding the EENT system. Neuro: Level of Consciousness is awake, alert, obeys commands, Oriented to person, place, time, situation, Appropriate for age. Cardiovascular: Capillary refill < 3 seconds Patient's skin is warm and dry. Respiratory: Airway is patent Respiratory effort is even, unlabored, Respiratory pattern is regular, symmetrical. GI: Abdomen is non-distended, Reports lower abdominal pain. : No deficits noted. No signs and/or symptoms were reported regarding the genitourinary system. Derm: Skin is intact, is healthy with good turgor, Skin is dry, Skin is normal, Skin temperature is warm. Musculoskeletal: Circulation, motion, and sensation intact. Range of motion: intact in all extremities. MANAGER STUDY: 19:00 LMP 02/13/2025, unknown vc1 Historical: - Allergies: 19:23 No Known Allergies; iw - Home Meds: 19:00 Mounjaro 5 mg/0.5 mL subcutaneous Pen Injector [Active]; vc1 - PMHx: 19:29 Diabetes mellitus; vc1 - PSHx: 19:23 None; iw - Immunization history:: Client reports receiving the 2nd dose of the Covid vaccine, Flu vaccine is not up to date. - Infectious Disease History:: Denies. - Social history:: Smoking status: Patient denies any tobacco usage or history of. Screenin:26 [facility] ED Fall Risk Assessment (Adult) History of falling in the last 3 months, iw including since admission No falls in past 3 months (0 pts) Confusion or Disorientation No (0 pts) Intoxicated or Sedated No (0 pts) Impaired Gait No (0 pts) Mobility Assist Device Used No (0 pt) Altered Elimination No (0 pt) Score/Fall Risk Level 0 - 2 = Low Risk Oriented to surroundings, Maintained a safe environment, Educated pt \T\ family on fall prevention, incl call for assistance when getting out of bed. Abuse screen: Denies threats or abuse. Nutritional screening: No deficits noted. Tuberculosis screening: No symptoms or risk factors identified. Assessment: 19:27 Reassessment: See triage assessment. iw Vital Signs: 19:00 BP 109 / 50; Pulse 61; Resp 16; Temp 97; Pulse Ox 99% ; Weight 78.47 kg; Height 5 ft. 3 vc1 in. ; Pain 5/10; 19:00 Body Mass Index 30.64 (78.47 kg, 160.02 cm) vc1 19:00 Pain Scale: Adult vc1 ED Course: 17:49 Patient arrived in ED. im 17:51 Kyleigh Uribe is Attending Physician. ci 18:53 CT Abd/Pelvis - IV Contrast Only In Process Unspecified. EDMS 19:00 Arm band placed on right wrist. vc1 19:00 Patient has correct armband on for positive identification. Provided Education on: vc1 gallbladder diet. 19:23 Triage completed. iw 20:07 US Abdomen Limited In Process Unspecified. EDMS 20:09 Transvaginal Study Probe In Process Unspecified. EDMS 20:09 Attending Physician role handed off by Kyleigh Uribe rt 20:09 Bear Hall MD is Attending Physician. rt 20:37 Attending Physician role handed off by Bear Hall MD ci 20:37 Kyleigh Uribe is Attending Physician. ci 21:18 No provider procedures requiring assistance completed. IV discontinued, intact, vc1 bleeding controlled, No redness/swelling at site. Pressure dressing applied. Administered Medications: 19:46 Drug: NS 0.9% IV 1000 ml IV at 1 bolus Per protocol; to be given as a bolus over 60 vc1 minutes Route: IV; Rate: 1 bolus; Site: right wrist; 19:47 Drug: TORadol - Ketorolac IVP 15 mg IVP once Route: IVP; Site: right wrist; vc1 19:47 Drug: Ondansetron IVP 4 mg IVP once; over 2 minutes Route: IVP; Site: right wrist; vc1 Medication: 21:18 VIS not applicable for this client. vc1 Outcome: 20:39 Discharge ordered by MD. ci 21:18 Discharged to home ambulatory, vc1 21:18 Condition: stable 21:18 Discharge instructions given to patient, Instructed on discharge instructions, follow up and referral plans. medication usage, Demonstrated understanding of instructions, follow-up care, medications, Prescriptions given X 1, 21:18 Patient left the ED. vc1 Signatures: Dispatcher [employer] EDKS Rut Butler RN RN iw Toshia Gonzalez RN RN vc1 Bear Hall MD MD rt Kerry Zamora Klyeigh Uribe ci Corrections: (The following items were deleted from the chart) 19:29 19:00 Chief complaint: Patient states: right lower quadrant pain that started around vc1 0230 am. iw 19:29 19:00 Method Of Arrival: Ambulatory iw vc1 19:29 19:00 Coronavirus screen: Client denies travel out of the [place] in the last 14 days. At [facility] this time, the client does not indicate any symptoms associated with coronavirus-19. : Ebola Screen: Patient negative for fever greater than or equal to 101.5 degrees vc1 Fahrenheit, and additional compatible Ebola Virus Disease symptoms Patient denies exposure to infectious person. Patient denies travel to an Ebola-affected area in the 21 days before illness onset. No symptoms or risks identified at this time. : Initial Sepsis Screen: Does the patient meet any 2 criteria? No. Patient's 1 initial sepsis screen is negative. Does the patient have a suspected source of infection? No. Patient's initial sepsis screen is negative. : Risk Assessment: Do you want to hurt yourself or someone else? Patient reports no [facility] desire to harm self or others. : Onset of symptoms was February 24, 2025 at 02:30 [facility] 19:00 BP 109 / 50; Pulse 61bpm; Resp 16bpm; Pulse Ox 99%; Temp 97F; 78.47 kg; Height 5 1 ft. 3 in.; BMI: 30.6; Pain 5/10, Adult; :00 Acuity: MAXINE 3 [facility] 19:23 Home Meds: Mounjaro 5 mg/0.5 mL subcutaneous Pen Injector; thursaday; [facility] 19:23 PMHx: Diabetes mellitus; [facility] 19:23 Immunization history: Client reports receiving the 2nd dose of the Covid vaccine, 1 Flu vaccine is not up to date. 19:23 Infectious Disease History: Denies. [facility] 30 19:23 Social history: Smoking status: Patient denies any tobacco usage or history of. [facility] :29 Home Meds: Mounjaro 5 mg/0.5 mL subcutaneous Pen Injector; thursaday; [place] [id number] 19:24 General: Appears in no apparent distress. uncomfortable, Behavior is calm, vc1 cooperative, appropriate for age, 19:24 Pain: Complains of pain in right lower quadrant Pain does not radiate. Pain vc1 currently is 5 out of 10 on a pain scale. at worst was 10 out of 10 on a pain scale. Quality of pain is described as crampy, Pain began suddenly, Is continuous, Noted to be guarding, Also complains of no other associated symptoms. iw : 19:24 EENT: No deficits noted. No signs and/or symptoms were reported regarding the vc1 EENT system. iw : 19:24 Neuro: Level of Consciousness is awake, alert, obeys commands, Oriented to vc1 person, place, time, situation, Appropriate for age iw : 19:24 Cardiovascular: Capillary refill < 3 seconds Patient's skin is warm and dry. iw vc1 :31 19:24 Respiratory: Airway is patent Respiratory effort is even, unlabored, Respiratory vc1 pattern is regular, symmetrical, iw : 19:24 GI: Abdomen is non-distended, Reports lower abdominal pain, iw vc1 : 19:24 : No deficits noted. No signs and/or symptoms were reported regarding the vc1 genitourinary system. iw : 19:24 Derm: Skin is intact, is healthy with good turgor, Skin is dry, Skin is normal, vc1 Skin temperature is warm iw :31 19:24 Musculoskeletal: Circulation, motion, and sensation intact. Range of motion: vc1 intact in all extremities, iw : 19:26 LMP 02/13/2025, unknown iw vc1 19:32 19:24 Arm band placed on right wrist. iw vc1
--- NOTE | 2025-02-24 20:40 | EDPHYS ---
Physician Documentation [facility] Name: Cathryn Rivera Age: 44 yrs Sex: Female : 1980 Arrival Date: 02/24/2025 Time: 17:47 Bed DX3 Private MD: ED Physician Kyleigh Uribe HPI: 02/24 19:02 This 44 yrs old Female presents to ER via Unassigned with complaints of ci Abdominal Pain. 19:02 Patient is a 44-year-old female with no PMH who presents to the ED with right lower ci quadrant abdominal pain that began today. Pain is sharp, constant, nonradiating. Associated with nausea but no vomiting. Endorses diarrhea. No vaginal bleeding, vaginal discharge. Denies fever. Patient has had a tummy tuck, but denies any other abdominal surgeries.. 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 - Infectious Disease History:: Denies. - Social history:: Smoking status: Patient denies any tobacco usage or history of. ROS: 19:02 Constitutional: Negative for fever, chills, and weight loss, Eyes: Negative for injury, ci pain, redness, and discharge, ENT: Negative for injury, pain, and discharge, Cardiovascular: Negative for chest pain, palpitations, and edema, Respiratory: Negative for shortness of breath, cough, wheezing, and pleuritic chest pain, 19:02 Abdomen/GI: Positive for abdominal pain, nausea, diarrhea, 19:02 : Negative for urinary symptoms, burning with urination, vaginal bleeding, 19:02 Neuro: Negative for altered mental status, syncope, weakness, Exam: 19:02 Constitutional: This is a well developed, well nourished patient who is awake, alert, ci and in no acute distress. Head/Face: Normocephalic, atraumatic. Chest/axilla: Normal chest wall appearance and motion. Nontender with no deformity. No lesions are appreciated. Cardiovascular: Regular rate and rhythm with a normal S1 and S2. No gallops, murmurs, or rubs. Normal PMI, no JVD. No pulse deficits. Respiratory: Lungs have equal breath sounds bilaterally, clear to auscultation and percussion. No rales, rhonchi or wheezes noted. No increased work of breathing, no retractions or nasal flaring. Neuro: Awake and alert, GCS 15, oriented to person, place, time, and situation. Cranial nerves II-XII grossly intact. Motor strength 5/5 in all extremities. Sensory grossly intact. Cerebellar exam normal. Normal gait. 19:02 Abdomen/GI: Palpation: soft, moderate abdominal tenderness, in the right lower quadrant, voluntary guarding, is not appreciated, involuntary guarding, is not appreciated, no appreciated organomegaly, 19:02 Back: CVA tenderness, is absent, vertebral tenderness, is not appreciated, Vital Signs: 19:00 BP 109 / 50; Pulse 61; Resp 16; Temp 97; Pulse Ox 99% ; Weight 78.47 kg; Height 5 ft. 3 vc1 in. ; Pain 5/10; 19:00 Body Mass Index 30.64 (78.47 kg, 160.02 cm) vc1 19:00 Pain Scale: Adult vc1 MDM: 17:51 Medical Screening Exam initiated ci 19:02 Differential Diagnosis Appendicitis, gastritis, gastroenteritis, SBO, perforated ci viscus. Doubt ectopic , ovarian torsion. Data reviewed: vital signs, nurses notes. 20:38 ED course: CT abdomen/pelvis was obtained to rule out acute appendicitis. CT concerning ci for cholecystitis, recommendations for ultrasound. Ultrasound gallbladder shows cholelithiasis with no evidence of acute cholecystitis. Patient has no leukocytosis. Ultrasound was obtained to rule out torsion, no evidence of torsion. No acute findings warranting admission at this time. Stable for discharge with close outpatient follow-up.. 02/24 17:56 Order name: CBC with Diff; Complete Time: 19:01 ci 04 17:56 Order name: CMP; Complete Time: 19:21 ci 02/24 19:21 Interpretation: Abnormal: K 3.3. ci 02/24 17:56 Order name: Lipase; Complete Time: 19:21 ci 02/24 19:21 Interpretation: Within normal limits. ci 02/24 17:56 Order name: CT Abd/Pelvis - IV Contrast Only; Complete Time: 19:21 ci 02/24 19:21 Interpretation: Abnormal: Per Radiologist's finding(s): Cholelithiasis. Question trace ci pericholecystic edema. Correlate clinically for acute cholecystitis. Could consider ultrasound if clinically indicated. 02/24 19:25 Order name: US Abdomen Limited; Complete Time: 20:31 ci 02/24 20:37 Interpretation: Abnormal: cholelithiasis. ci 02/24 19:32 Order name: Transvaginal Study Probe; Complete Time: 20:31 EDSD 02/24 20:37 Interpretation: No acute disease. ci 02/24 17:56 Order name: IV Saline Lock; Complete Time: 19:27 ci 02/24 17:56 Order name: Labs collected and sent; Complete Time: 19:27 ci Administered Medications: 19:46 Drug: NS 0.9% IV 1000 ml IV at 1 bolus Per protocol; to be given as a bolus over 60 vc1 minutes Route: IV; Rate: 1 bolus; Site: right wrist; 19:47 Drug: TORadol - Ketorolac IVP 15 mg IVP once Route: IVP; Site: right wrist; vc1 19:47 Drug: Ondansetron IVP 4 mg IVP once; over 2 minutes Route: IVP; Site: right wrist; vc1 Disposition Summary: 02/24/25 20:39 Discharge Ordered Notes: Location: Home ci Condition: Stable ci Diagnosis - Right lower quadrant pain ci - Other cholelithiasis without obstruction ci Followup: ci - With: Private Physician - When: 2 - 3 days - Reason: Recheck today's complaints, Re-evaluation by your physician Discharge Instructions: - Discharge Summary Sheet ci - Cholelithiasis, [id number] ci - Abdominal Pain, Adult, [id number] ci Forms: - Medication Reconciliation Form ci - Antibiotic Education ci - Prescription Opioid Use ci - Patient Portal Instructions ci - Leadership Thank You Letter ci Prescriptions: - dicyclomine 20 mg Oral tablet - take 1 tablet ORAL route 3 times per day as needed for abdominal pain; 20 ci tablet; Refills: 0, Product Selection Permitted Signatures: Dispatcher [employer] Rut Young RN RN iw Calcote, Vanessa, RN RN vc1 Bear Hall MD MD rt Kyleigh Uribe Corrections: (The following items were deleted from the chart) 19:25 Transvaginal Ob+[id number] ordered. EDMS EDSD 19:23 Home Meds: Mounjaro 5 mg/0.5 mL subcutaneous Pen Injector; thursaday; [facility] 19:23 PMHx: Diabetes mellitus; [facility] 19:23 Immunization history: Client reports receiving the 2nd dose of the Covid vaccine, vc1 Flu vaccine is not up to date. 19:23 Infectious Disease History: Denies. [facility] 19:23 Social history: Smoking status: Patient denies any tobacco usage or history of. [facility] 19:29 Home Meds: Mounjaro 5 mg/0.5 mL subcutaneous Pen Injector; thursaday; vc1 vc1
[2025-02-24 21:44] VITALS: BP 109/50; TEMP 97; O2SAT 99
== END 2025-02-24 21:18 | disposition home or self-care (01) ==
LOC: ER 17:47
DX: K80.80 Other cholelithiasis without obstruction (principal); E11.9 Type 2 diabetes mellitus without complications
CPT/HCPCS: 85025; 36415; 82565; 83690; 80053; 74177; 76705; 76830; 96375; 96374; 99284; Q9967; J2405; J7030